=== PATIENT | male | born 1930 | race Caucasian/White ===

== ENCOUNTER → 2018-12-18 | Outpatient (CLI) | payer MEDICARE ==
[~2018-12-18] MED LIST: ANTACID PLUS A355 M2 PO; ASPI325 PO; ATOR10 PO; Acetaminophen325 M1 PO; Anti-Diarrheal2 MG PO; DIVA125 PO; Enalapril Maleat5 MG PO; FURO20 PO; Fleet Bisa10 MG/30 M PR; INSULANPEN SC; Klor-Con 1010 MEQ PO; METF500C PO; Milk Of Ma400 MG/5 M PO; NOVOLOG100 UNIT/1 SC; ONDA4ODT MM; SEROQUEL25 MG PO; SERT25 PO; Vitamin B-121000 MCG PO
[2018-12-19 13:29] LABS: Source, Urine Clean Catch
[2018-12-19 14:28] LABS: Bilirubin, Urine Neg (Neg); Blood, Urine Neg (Neg); Glucose Qualitative, Urine 1+ (Neg); Ketones, Urine Neg (Neg); Leukocyte Esterase, Urine Neg (Neg); Nitrite, Urine Neg (Neg); Protein, Urine 1+ (Neg); Urobilinogen, Urine 1+ (Normal)
[2018-12-19 14:42] LABS: Appearance, Urine Clear (Clear); Color, Urine Yellow (P-Yellow)
== END | disposition home or self-care (01) ==
LOC: LAB SHORT 12:00 → LAB 12:00
PROVIDERS: Family Medicine
DX: N39.0 Urinary tract infection, site not specified (principal)
CPT/HCPCS: 81003

== ENCOUNTER → 2019-01-10 | Outpatient (CLI) | payer MEDICARE ==
[2019-01-10 19:20] LABS: Source, Urine Clean Catch
[2019-01-10 19:38] LABS: Blood, Urine Neg (Neg); Glucose Qualitative, Urine Neg (Neg); Ketones, Urine 1+ (Neg); Leukocyte Esterase, Urine 1+ (Neg); Nitrite, Urine Neg (Neg); Protein, Urine 2+ (Neg); Urobilinogen, Urine 1+ (Normal)
[2019-01-10 19:39] LABS: Appearance, Urine Hazy (Clear); Bilirubin, Urine 1+ (Neg); Color, Urine Yellow (P-Yellow)
[2019-01-10 19:46] LABS: Bacteria Mod /hpf; Red Blood Cells, Urine 0-2 /hpf (0-2); Squamous Epithelial Cells Few /hpf (Few)
[2019-01-10 19:47] LABS: Calcium Oxalate Crystals Few /hpf
== END ==
LOC: LAB SHORT 14:40
PROVIDERS: Family Medicine
DX: N39.0 Urinary tract infection, site not specified (principal)
CPT/HCPCS: 81001; 87086

== ENCOUNTER 2019-02-18 02:17 | Inpatient (IN) | payer MEDICARE ==
[~2019-02-18] VITALS: Ht 182.9 cm; Wt 83.9 kg
[2019-02-18] MEDS ORDERED: Acetaminophen325 M1 PO (02:44)
[2019-02-18] MEDS ORDERED: ASPI325 PO (02:44)
[2019-02-18] MEDS ORDERED: DIVA125 PO (02:45)
[2019-02-18] MEDS ORDERED: ATOR10 PO (02:45)
[2019-02-18] MEDS ORDERED: INSULANPEN SC (02:46)
[2019-02-18] MEDS ORDERED: Enalapril Maleat5 MG PO (02:46)
[2019-02-18] MEDS ORDERED: METF500C PO (02:47)
[2019-02-18] MEDS ORDERED: NOVOLOG100 UNIT/1 SC ×2 (02:48→02:49)
[2019-02-18] MEDS ORDERED: SERT25 PO (02:49)
[2019-02-18] MEDS ORDERED: ANTACID PLUS A355 M2 PO (02:50)
[2019-02-18] MEDS ORDERED: Vitamin B-121000 MCG PO (02:50)
[2019-02-18 02:51] LABS: BASOPHILS ABSOLUTE AUTO 0.04 K/mm3 (0.00-0.23); BASOPHILS PERCENT AUTO 0 % (0-2); EOSINOPHILS ABSOLUTE AUTO 0.08 K/mm3 (0.00-0.68); EOSINOPHILS PERCENT AUTO 1 % (0-6); Hemoglobin 11.3 g/dL (13.5-17.5); IMMATURE GRAN ABSOLUTE AUTO 0.04 K/mm3 (0.00-0.10); IMMATURE GRAN PERCENT AUTO 0 % (0-1); LYMPHOCYTES ABSOLUTE AUTO 1.29 K/mm3 (0.84-5.20); LYMPHOCYTES PERCENT AUTO 11 % (21-46); MONOCYTES ABSOLUTE AUTO 0.91 K/mm3 (0.16-1.47); MONOCYTES PERCENT AUTO 8 % (4-13); Mean Corpuscular HGB 30.3 pg (26.0-34.0); Mean Corpuscular HGB Conc 30.5 g/dL (31.5-36.5); Mean Corpuscular Volume 99 fL (80-100); Mean Platelet Volume 9.7 fL (9.1-12.4); NEUTROPHILS ABSOLUTE AUTO 9.23 K/mm3 (1.96-9.15); NEUTROPHILS PERCENT AUTO 80 % (41-73); Platelet Count 301 K/mm3 (150-400); RDW Standard Deviation 47.3 fL (35.1-46.3); Red Blood Cell Count 3.73 M/mm3 (4.30-5.90); White Blood Cell Count 11.59 K/mm3 (4.00-11.30)
[2019-02-18] MEDS ORDERED: Fleet Bisa10 MG/30 M PR (02:51)
[2019-02-18] MEDS ORDERED: Milk Of Ma400 MG/5 M PO (02:52)
[2019-02-18] MEDS ORDERED: Anti-Diarrheal2 MG PO (02:52)
[2019-02-18] MEDS ORDERED: SEROQUEL25 MG PO (02:53)
[2019-02-18] MEDS ORDERED: ONDA4ODT MM (02:53)
[2019-02-18 03:11] LABS: Alanine Aminotransfer (ALT/SGP 20 U/L (12-78); Albumin, Blood 3.2 g/dL (3.4-5.0); Albumin/Globulin Ratio 0.8 (0.8-1.8); Alk Phos 104 U/L (50-136); Anion Gap 9 mmol/L (6-16); Aspartate Aminotrans (AST/SGOT 15 U/L (12-37); Bilirubin, Total 0.6 mg/dL (0.1-1.0); Blood Urea Nitrogen 26 mg/dL (8-24); CO2, Blood 25 mmol/L (21-32); Calcium, Blood 8.4 mg/dL (8.5-10.1); Chloride, Blood 106 mmol/L (98-108); Creatinine, Blood 1.04 mg/dL (0.60-1.20); Glomerular Filtration Rate >60 (60-); Glucose, Blood 154 mg/dL (70-99); Magnesium, Blood 1.5 mg/dL (1.6-2.4); Potassium, Blood 4.8 mmol/L (3.5-5.5); Sodium, Blood 140 mmol/L (136-145); Total Protein, Blood 7.2 g/dL (6.4-8.2); Troponin I 0.045 ng/mL (0.000-0.040)
[2019-02-18 03:14] LABS: PCO2 Arterial 54.2 mmHg (35-45); PO2 Arterial 85.4 mmHg (80-100); pH Blood Arterial 7.33 (7.35-7.45)
[2019-02-18 03:45] LABS: Influenza A Negative (NEGATIVE); Influenza B Negative (NEGATIVE)
--- NOTE | 2019-02-18 07:00 | NUR ---
pt arrived to room 363 from er dept being admitted for chf and pul edema and resp failure pt lives at [facility] for ad dem pt was given lasix in er and is breathing a little better currently on 4 l nc assisted pt to bathroom to void pt only wanting to use the bathroom will not use a urinal or the bsc very unsteady on his feet
--- NOTE | 2019-02-18 07:30 | NUR ---
pt son at bedside health history to be given so he can go home lives in [place] phone numbers placed on chart
--- NOTE | 2019-02-18 08:36 | NUR ---
Echocardiogram completed
[2019-02-18 09:45] LABS: Anion Gap 6 mmol/L (6-16); Blood Urea Nitrogen 26 mg/dL (8-24); Bun/Creatinine Ratio 26.3 (12.0-20.0); CO2, Blood 31 mmol/L (21-32); Calcium, Blood 8.4 mg/dL (8.5-10.1); Chloride, Blood 103 mmol/L (98-108); Creatinine, Blood 0.99 mg/dL (0.60-1.20); Glomerular Filtration Rate >60 (60-); Glucose, Blood 156 mg/dL (70-99); Potassium, Blood 4.3 mmol/L (3.5-5.5); Sodium, Blood 140 mmol/L (136-145)
--- NOTE | 2019-02-18 09:55 | NUR ---
transfer via bed to [address] [place] [address] due to adv dementia discussed with pt's son prior to him leaving for home this am pt trying to remove tele mult times and iv covered both up also unsteady on his feet needs closer monitoring report given
[2019-02-18 10:21] LABS: BASOPHILS ABSOLUTE AUTO 0.04 K/mm3 (0.00-0.23); BASOPHILS PERCENT AUTO 1 % (0-2); EOSINOPHILS ABSOLUTE AUTO 0.02 K/mm3 (0.00-0.68); EOSINOPHILS PERCENT AUTO 0 % (0-6); Hematocrit 33.5 % (37.0-53.0); Hemoglobin 10.6 g/dL (13.5-17.5); IMMATURE GRAN ABSOLUTE AUTO 0.02 K/mm3 (0.00-0.10); IMMATURE GRAN PERCENT AUTO 0 % (0-1); LYMPHOCYTES ABSOLUTE AUTO 0.99 K/mm3 (0.84-5.20); LYMPHOCYTES PERCENT AUTO 11 % (21-46); MONOCYTES ABSOLUTE AUTO 0.93 K/mm3 (0.16-1.47); MONOCYTES PERCENT AUTO 11 % (4-13); Mean Corpuscular HGB 30.1 pg (26.0-34.0); Mean Corpuscular HGB Conc 31.6 g/dL (31.5-36.5); NEUTROPHILS PERCENT AUTO 77 % (41-73); Platelet Count 295 K/mm3 (150-400); RDW Coefficient Variation 13.2 % (11.7-14.2); RDW Standard Deviation 45.8 fL (35.1-46.3); Red Blood Cell Count 3.52 M/mm3 (4.30-5.90)
[2019-02-18 10:24] LABS: Mean Corpuscular Volume 95 fL (80-100)
--- NOTE | 2019-02-18 18:36 | NUR ---
SHIFT SUMMARY PT A NEW ADMISSION THIS AM FROM ED. PT WAS TRANSFERRED TO ROOM 352 VIA BED FROM 363 DUE TO DEMENTIA AND HIGH RISK FOR FALLS. PT HAS BEEN ORIENTED TO SELF AND FAMILY ALL SHIFT. PT PLEASANT AND COOPERATIVE WITH CARE. PT HAS HAD NO COMPLAINTS OF PAIN OR SHORTNESS OF BREATH THIS SHIFT. PT REMOVED FROM TELE THIS AFTERNOON AND TOLERATING WELL. OXYGEN SATURATION HAS BEEN 92-94% ON ROOM AIR WHEN THIS RN HAS CHECKED. BLOOD SUGARS ELEVATED. PT DECLINED LUNCH UNTIL LATER SO INSULIN WAS NOT GIVEN BUT PT DID RECEIVE DINNER INSULIN. PT HAS HAD A GOOD APPETITE. VOIDING CLEAR YELLOW URINE OFTEN DUE TO IV LASIX. NO ACUTE CHANGES THIS SHIFT. PT UP IN CHAIR AT THIS TIME, EATING DINNER AND VISITING WITH FAMILY. CHAIR ALARM ON. CALL LIGHT IN REACH. WILL CONTINUE TO MONITOR FOR CHANGES.
--- NOTE | 2019-02-18 19:20 | NUR ---
PATIENT SITTING IN BED, USED CALL LIGHT. ASKED HOW TO USE THE CONTROLER. SHOWED HIM HOW. HE WAS JOKING AROUND AND PLEASANT. DENIED NEED TO USE THE BATHROOM AT THIS TIME. DENIED ANY COMPLAINTS WELL. 3 RAILS UP AND CALL LIGHT IN HAND, BED ALARM IS ON. WILL CONTINUE TO MONITOR.
--- NOTE | 2019-02-19 02:50 | NUR ---
TELE COMPUTER SYSTEMS INTEGRATOR CALLED REPORTING THAT PATIENT IS THROWING ALOT MORE PVC'C THEN AT THE START OF SHIFT. HE IS CURRENTLY SLEEPING COMFORTABLY. NO SIGNS OF DISTRESS.
--- NOTE | 2019-02-19 05:42 | NUR ---
SHIFT SUMMARY: 88 Y/O MALE ADMITTED FOR ACUTE HYPOXEMIA. LULI HAS BEEN PLEASANTLY CONFUSED. NOT ABLE TO USE HIS CALL LIGHT. GETS UP SETTING OFF BED ALARM WHEN NEED TO USE THE BATHROOM. LULI SLEPT THROUGHOUT THE NIGHT WITH NO ACUTE CHANGES OR CONCERNS. TOOK MEDS WITH WATER, WHOLE. ALL NEEDS WERE PROVIDED FOR. WILL REPORT TO DAY SHIFT RN.
[2019-02-19] MEDS ORDERED: FURO20 PO (14:42)
[2019-02-19] MEDS ORDERED: Klor-Con 1010 MEQ PO (14:44)
--- NOTE | 2019-02-19 15:16 | NUR ---
DISCHARGE SUMMARY PT D/C TO [facility]. REPORT CALLED TO [facility] RN. PT TRANSPORTED BY [facility]. PT STABLE AND BELONGINGS SENT WITH PT. A COPY OF MEDS AND D/C INSTRUCTION SENT WITH PT.
--- NOTE | 2019-02-19 16:06 | NUR ---
PT DC'D BACK TO [facility] VIA [facility] W/C TRANSPORT AT 1605.
== END 2019-02-19 16:02 | disposition home or self-care (01) | DRG 280 ==
LOC: ER 02:17 → MEDS 04:38
PROVIDERS: Emergency Medicine; ADMIT Hospitalist
DX: I11.0 Hypertensive heart disease with heart failure (principal); J96.01 Acute respiratory failure with hypoxia; I21.A1 Myocardial infarction type 2; I50.31 Acute diastolic (congestive) heart failure; F03.90 Unspecified dementia, unspecified severity, without behavioral disturbance, psychotic disturbance, mood disturbance, and anxiety; E83.42 Hypomagnesemia; E11.9 Type 2 diabetes mellitus without complications; Z86.73 Personal history of transient ischemic attack (TIA), and cerebral infarction without residual deficits; E78.5 Hyperlipidemia, unspecified; Z87.891 Personal history of nicotine dependence; Z66 Do not resuscitate; Z79.82 Long term (current) use of aspirin; Z79.4 Long term (current) use of insulin
CPT/HCPCS: 36415; 36600; 71045; 80048; 80053; 82803; 82947; 83605; 83735; 83880; 84145; 84484; 85025; 87040; 87804; 93005; 93010; 93306; 94640; 96365; 96366; 96375; 99285-25; J1650; J1815; J1940; J3475

== ENCOUNTER → 2019-05-28 | Outpatient (CLI) | payer OTHER ==
[2019-05-28 12:48] LABS: Source, Urine Clean Catch
[2019-05-28 17:41] LABS: Bilirubin, Urine Neg (Neg); Blood, Urine Neg (Neg); Glucose Qualitative, Urine Neg (Neg); Ketones, Urine Neg (Neg); Leukocyte Esterase, Urine Neg (Neg); Nitrite, Urine Neg (Neg); Protein, Urine 1+ (Neg); Urobilinogen, Urine NORM (Normal)
[2019-05-28 17:59] LABS: Appearance, Urine Clear (Clear); Color, Urine Yellow (P-Yellow)
== END | disposition home or self-care (01) ==
LOC: LAB 12:44 → LAB SHORT 12:44
PROVIDERS: Family Medicine
DX: N39.0 Urinary tract infection, site not specified (principal)
CPT/HCPCS: 81003

== ENCOUNTER → 2019-06-29 | Outpatient (CLI) | payer OTHER ==
[2019-07-01 13:39] LABS: Source, Urine Clean Catch
[2019-07-01 15:09] LABS: Bilirubin, Urine Neg (Neg); Blood, Urine Neg (Neg); Glucose Qualitative, Urine Neg (Neg); Ketones, Urine 1+ (Neg); Leukocyte Esterase, Urine 1+ (Neg); Nitrite, Urine Neg (Neg); Protein, Urine 2+ (Neg); Urobilinogen, Urine NORM (Normal)
[2019-07-01 15:13] LABS: Appearance, Urine Hazy (Clear); Color, Urine Yellow (P-Yellow)
[2019-07-01 15:19] LABS: Bacteria Mod /hpf; Red Blood Cells, Urine 0-2 /hpf (0-2); Squamous Epithelial Cells Few /hpf (Few); White Blood Cells, Urine 0-2 /hpf (0-5)
== END | disposition home or self-care (01) ==
LOC: LAB SHORT 13:37 → LAB 13:37
PROVIDERS: Family Medicine
DX: N39.0 Urinary tract infection, site not specified (principal)
CPT/HCPCS: 81001; 87086

== ENCOUNTER → 2019-07-02 | Outpatient (CLI) | payer OTHER ==
[2019-07-02 14:09] LABS: Valproic Acid 15.6 ug/mL (50.0-100.0)
== END | disposition home or self-care (01) ==
LOC: LAB SHORT 12:35 → LAB 12:35
PROVIDERS: Psychiatry & Neurology Psychiatry
DX: Z51.81 Encounter for therapeutic drug level monitoring (principal); Z79.899 Other long term (current) drug therapy
CPT/HCPCS: 80164